=== PATIENT | female | born 1950 | race Caucasian/White ===

== ENCOUNTER 2016-05-16 17:14 | Inpatient (IN) ==
[2016-05-16 18:28] LABS: ABG Base Excess -2.6 MMOL/L (-2.5-2.5); ABG HCO3 22.1 MMOL/L (20-26); ABG Oxygen Saturation 93.4 % (95-100); ABG PCO2 27.6 MM HG (35-48); ABG PO2 63.3 MM HG (80-95); ABG TCO2 16.5 MMOL/L (23-27)
--- NOTE | 2016-05-16 18:54 | Emergency Department Note ---
Madhu Carreon Meredith, am scribing for, and in the presence of, Richie De Leon MD 18:06. Moises Carreon Robert M, MD, personally performed the services described in this documentation, ascribed by Ladonna Leung in my presence, and it is both accurate and complete [id number] . Arrival - Arrival Chief Complaint: Shortness of Breath Stated Complaint: SOB ED Nursing Triage Note: C/O HAVING SOB SINCE LAST EVENING, STATES EVERYTIME SHE COMES IN THEY TELL HER SHE IS HAVING PANIC ATTACKS, SHE STATES SHE IS NOT HAVING PANIC ATTACK THAT SOMETHING IS WRONG., STATES SHE HAS BEEN UNDER ALOT OF STRESS , STATES THAT TWO OF HER FAMILY MEMBERS HAVE BEEN MURDERED OR KILLED IN THE LAST YEAR Mode of Arrival: Ambulatory Limitations: No Limitations Source: Patient, Old Records Reviewed, RN Notes Reviewed - History of Present Illness HPI Narrative: Pt is a 65 y/o white female reporting to the ED with c/o shortness of breath for the past 3 days. She states that every time she comes here for shortness of breath she is told she's having a panic attack. Pt says she is not having a panic attack. She admits to being under a lot of stress due to her daughter being murdered and her committing suicide in the past year. She states thinking about these deaths makes the shortness of breath worse. Pt has a history of anxiety, depression, and psoriasis. Onset (ago): day(s) Allergies/Adverse Reactions: Allergies Allergy/AdvReac Type Severity Reaction Status Date / Time clarithromycin [From Biaxin] Allergy HIVES Verified 05/16/16 17:20 Home Medications: Home Medications Medication Instructions Recorded Confirmed Type Amitriptyline [Elavil] 10 mg PO Q6H #120 tablet 04/07/16 05/16/16 Rx PARoxetine [Paxil] 40 mg PO DAILY #30 tablet 04/07/16 05/16/16 Rx ALPRAZolam [Xanax] 0.25 mg PO DAILY #7 tablet 05/10/16 05/16/16 Rx Review of System - Review of System 12 point system: reviewed and no additional remarkable complaints except as stated - Review of System Respiratory: Present: as per HPI, other (SOB) Psychiatric: Present: as per HPI, other (stress) Medical,Surgical,& Family Hx - Medical History Psychological: History of: Anxiety Disorders, Depression Rheumatology: History of;: Psoriasis - Social History Smoking Status: Never smoker Frequency of Alcohol Use: None Type of Drug Use: None Exam Vital Signs: Vital Signs Temperature 97.5 F L 05/16/16 17:17 Pulse Rate 115 H 05/16/16 18:30 Respiratory Rate 22 05/16/16 18:30 Blood Pressure 100/69 05/16/16 18:30 O2 Sat by Pulse Oximetry 96 05/16/16 18:30 - General General appearance: alert, in no apparent distress, other - Head Head exam: Present: atraumatic, normocephalic - Eye Eye exam: Present: normal appearance, PERRL, EOMI - ENT ENT exam: Present: mucous membranes moist, normal external ear exam - Neck Neck exam: Present: full ROM, trachea midline. Absent: tenderness, meningismus , lymphadenopathy, thyromegaly - Chest Chest inspection: Present: symmetric chest wall rise. Absent: tenderness, rash - Respiratory Respiratory exam: Present: other (dyspnic; speaks in 1-2 word phrases due to shortness of breath). Absent: rales, rhonchi, wheezes - Cardiovascular Cardiovascular exam: Present: regular rate, normal rhythm, normal heart sounds. Absent: murmur, rubs, gallop - Abdominal Exam Abdominal exam: Present: soft, normal bowel sounds. Absent: distention, tenderness - Extremities Exam Extremities exam: Present: full ROM, normal capillary refill. Absent: tenderness, pedal edema, calf tenderness - Back Exam Back exam: Present: full ROM. Absent: tenderness - Neurological Exam Neurological exam: Present: alert, oriented X3, CN II-XII intact. Absent: motor sensory deficit - Psychiatric Psychiatric exam: Present: other (hysterical) - Skin Skin exam: Present: warm, dry, intact, normal color Course - Consultations Consultation #1: The hospitalist will evaluate and admit the patient. Time: 19:57 Results - Labs CBC & BMP: 05/16/16 18:44 05/16/16 18:44 Lab Results: I have reviewed the patients labs Labs: Laboratory Tests 05/16/16 18:07 ABG pH 7.460 H ABG pCO2 27.6 L ABG pO2 63.3 L ABG HCO3 22.1 ABG Total CO2 16.5 L ABG O2 Saturation 93.4 L ABG Base Excess -2.6 L Lab Results WBC 6.9 10*3/uL (4.5-13.71) 05/16/16 18:44 RBC 5.37 10*6/uL (3.8-5.5) 05/16/16 18:44 Hgb 15.6 GM/DL (12.0-16.0) 05/16/16 18:44 Hct 48.0 VOL% (35.7-47.0) H 05/16/16 18:44 MCV 89.4 FL (87-102) 05/16/16 18:44 MCH 29 PG (27-34) 05/16/16 18:44 MCHC 32.5 GM/DL (32-36) 05/16/16 18:44 RDW 14.1 % (9.3-17.3) 05/16/16 18:44 Plt Count 178 10*3/uL (130-400) 05/16/16 18:44 MPV 10.6 FL (9.6-12.0) 05/16/16 18:44 Neut % (Auto) 57.4 % (38.7-73.9) 05/16/16 18:44 Lymph % (Auto) 33.0 % (21.3-54.2) 05/16/16 18:44 [place] % (Auto) 8.0 % (1.7-12.7) 05/16/16 18:44 Eos % (Auto) 1.2 % (0.00-10.9) 05/16/16 18:44 Baso % (Auto) 0.3 % (0.0-0.8) 05/16/16 18:44 Neut # (Auto) 4.0 10*3/uL (1.4-7.4) 05/16/16 18:44 Lymph # (Auto) 2.3 10*3/uL (1.4-4.0) 05/16/16 18:44 [place] # (Auto) 0.6 10*3/uL (0.11-0.8) 05/16/16 18:44 Eos # (Auto) 0.1 10*3/uL (0.0-0.87) 05/16/16 18:44 Baso # (Auto) 0.0 10*3/uL (0.0-0.2) 05/16/16 18:44 Immature Gran % 0.1 % 05/16/16 18:44 Nucleated RBC % 0.0 /100WBC 05/16/16 18:44 Immature Gran # 0.01 # 05/16/16 18:44 Nucleated RBCs # 0.00 10*3/uL 05/16/16 18:44 INR 1.1 05/16/16 18:44 PT Patient/Control Mix 11.7 SECS 05/16/16 18:44 Sodium 146 MMOL/L (136-145) H 05/16/16 18:44 Potassium 4.0 MMOL/L (3.5-5.1) 05/16/16 18:44 Chloride 114 MMOL/L (98-107) H 05/16/16 18:44 Carbon Dioxide 22 MMOL/L (21-32) 05/16/16 18:44 Anion Gap 14.0 MMOL/L (5.0-15.0) 05/16/16 18:44 BUN 19 MG/DL (7-18) H 05/16/16 18:44 Creatinine 0.80 MG/DL (0.55-1.02) 05/16/16 18:44 GFR Calculation 81 ML/MIN 05/16/16 18:44 BUN/Creatinine Ratio 23.00 RATIO (6.00-20.00) H 05/16/16 18:44 Glucose 95 MG/DL (74-106) 05/16/16 18:44 Calculated Osmolality 291.6 MOS/KG (273-304) 05/16/16 18:44 Calcium 8.7 MG/DL (8.5-10.1) 05/16/16 18:44 Magnesium 2.1 MG/DL (1.8-2.4) 05/16/16 18:44 Total Bilirubin 0.90 MG/DL (0.2-1.0) 05/16/16 18:44 AST 36 U/L (0-37) 05/16/16 18:44 ALT 28 U/L (13-56) 05/16/16 18:44 Alkaline Phosphatase 75 U/L (45-117) 05/16/16 18:44 Total Protein 7.7 G/DL (6.4-8.3) 05/16/16 18:44 Albumin 3.2 G/DL (3.4-5.0) L 05/16/16 18:44 Globulin 4.5 G/DL (2.3-3.5) H 05/16/16 18:44 Albumin/Globulin Ratio 0.7 RATIO (1.1-2.2) L 05/16/16 18:44 Urine Color [place] (Yellow) 05/16/16 18:46 Urine Appearance Slightly hazy (Clear) 05/16/16 18:46 Urine pH 5.0 (4.5-8.0) 05/16/16 18:46 Ur Specific [place] 1.026 (1.001-1.035) 05/16/16 18:46 Urine Protein 30 MG/DL 05/16/16 18:46 Urine Glucose (UA) Negative mg/dL (Negative) 05/16/16 18:46 Urine Ketones Negative mg/dL (Negative) 05/16/16 18:46 Urine Blood Negative mg/dL (Negative) 05/16/16 18:46 Urine Nitrate Negative (Negative) 05/16/16 18:46 Urine Bilirubin Negative mg/dL (Negative) 05/16/16 18:46 Urine Urobilinogen < 2.0 EU/DL (0.2-1.0) H 05/16/16 18:46 Urine Leukocytes Trace Radha/ul (Negative) 05/16/16 18:46 Urine RBC 2 /HPF (0-4) 05/16/16 18:46 Urine WBC 12 /HPF (0-6) 05/16/16 18:46 Ur Squamous Epith Cells Occasional /HPF (0-10) 05/16/16 18:46 Urine Bacteria Occasional /HPF (Few) 05/16/16 18:46 Hyaline Casts 4 /LPF (0-3) 05/16/16 18:46 Urine Mucus Occasional /LPF (Occasional) 05/16/16 18:46 Ur Culture Indicated? Results to follow 05/16/16 18:46 ABG pH 7.460 (7.35-7.45) H 05/16/16 18:07 ABG pCO2 27.6 MM HG (35-48) L 05/16/16 18:07 ABG pO2 63.3 MM HG (80-95) L 05/16/16 18:07 ABG HCO3 22.1 MMOL/L (20-26) 05/16/16 18:07 ABG Total CO2 16.5 MMOL/L (23-27) L 05/16/16 18:07 ABG O2 Saturation 93.4 % (95-100) L 05/16/16 18:07 ABG Base Excess -2.6 MMOL/L (-2.5-2.5) L 05/16/16 18:07 - EKG EKG results: interpreted by JANNETH, WNL, sinus rhythm - Diagnostic Findings Procedure: Chest x-ray: image reviewed by me (CHF) Disposition Clinical Impression: Congestive heart failure, Acute dyspnea, History of hypertension Case discussed with: patient, patient's family Disposition: Still a Patient Condition: Stable Time of Disposition: 19:57
[2016-05-16 19:09] LABS: Apearance,Urine Slightly Hazy (Clear); Bacteria,Urine Occasional /HPF (Few); Bilirubin,Urine Negative (Negative); Blood, Urine Negative (Negative); Glucose,Urine (UA) Negative (Negative); Hyaline Casts,Urine 4 /LPF (0-3); Ketones,Urine Negative (Negative); Mucus,Urine Occasional /LPF (Occasional); Nitrite,Urine Negative (Negative); Protein,Urine 30 MG/DL; RBC,Urine 2 /HPF (0-4); Squamous Epithelial Cell,Urine Occasional /HPF (0-10); Urine Color Amber (Yellow); Urine Specific Gravity 1.026 (1.001-1.035); Urine Urobilinogen < 2.0 EU/DL (0.2-1.0); WBC,Urine 12 /HPF (0-6)
--- NOTE | 2016-05-16 19:09 | XRay Report ---
History: Shortness of breath Date: 05/16/2016 at 6:23 PM Study: Chest x-ray AP portable Comparison exam: No previous chest x-ray available There is cardiomegaly and mild pulmonary vascular engorgement. There is no mediastinal mass. There is hazy edema in the lower lungs right greater than left. There is mild bilateral pleural effusion. The osseous structures are unremarkable. Impression: Cardiomegaly and evidence of congestive heart failure with mild bibasilar edema and pleural effusion PROCEDURE INTERPRETED AT [facility] DEPARTMENT OF RADIOLOGY Final Report Signed by: Dr. Ava Powell
[2016-05-16 19:19] LABS: Basophils % 0.3 % (0.0-0.8); Eosinophils # 0.1 10*3/uL (0.0-0.87); Eosinophils % 1.2 % (0.00-10.9); Hemoglobin 15.6 GM/DL (12.0-16.0); Immature Granulocytes % 0.1 %; Immature Granulocytes Absolute 0.01 #; Lymphocytes # 2.3 10*3/uL (1.4-4.0); Mean Corpuscular HGB Conc 32.5 GM/DL (32-36); Mean Corpuscular Hemoglobin 29 PG (27-34); Mean Corpuscular Volume 89.4 FL (87-102); Mean Platelet Volume 10.6 FL (9.6-12.0); Monocytes # 0.6 10*3/uL (0.11-0.8); Neutrophils % 57.4 % (38.7-73.9); Platelet Count 178 10*3/uL (130-400); Red Blood Count 5.37 10*6/uL (3.8-5.5); Red Cell Distribution Width 14.1 % (9.3-17.3); White Blood Count 6.9 10*3/uL (4.5-13.71)
[2016-05-16 19:32] LABS: INR 1.1; PT Patient Result 11.7 SECS
[2016-05-16 19:44] LABS: Albumin 3.2 G/DL (3.4-5.0); Bilirubin,Total 0.9 MG/DL (0.2-1.0); Calcium 8.7 MG/DL (8.5-10.1); Magnesium 2.1 MG/DL (1.8-2.4); Osmolality,Calculated 291.6 MOS/KG (273-304); Total Protein 7.7 G/DL (6.4-8.3)
--- NOTE | 2016-05-16 20:07 | CT Report ---
History: Shortness of breath. Decreased oxygen saturation Date: 05/16/2016 Study: CT chest with IV contrast with pulmonary embolus technique Comparison exam: No previous chest CT available Spiral CT sections were obtained through the lungs following the IV administration of 80 mL of Omnipaque 350 without immediate complication. Multiplanar reconstruction images are also evaluated. Total DLP measures 265.5 mGy*cm. There is no discrete filling defect within the pulmonary arterial tree to suggest acute pulmonary embolic disease. There is no aortic aneurysm. There is cardiomegaly. There is moderate to large bilateral pleural effusion. There is some strandy and hazy opacity in the lung bases which thought represent a combination of atelectasis and pulmonary edema. There is moderate thoracic spondylosis. Impression: No evidence of acute pulmonary embolic disease. Cardiomegaly and evidence of CHF. Bibasilar atelectasis. Bilateral pleural effusion PROCEDURE INTERPRETED AT [facility] DEPARTMENT OF RADIOLOGY Final Report Signed by: Dr. Ava Powell
--- NOTE | 2016-05-16 21:00 | Hospitalist History & Physical ---
Assessment and Plan (1) Congestive heart failure Status: Suspected Current Visit: Yes (2) Acute anxiety Status: Acute Current Visit: No (3) History of hypertension Status: Acute Assessment and plan: Plan: 05/16: Admit to telemetry, check cardiac enzymes and EKG. Will obtain echo in the morning to evaluate LV function. In the meantime start beta wing and lisinopril/HCTZ for adequate blood pressure control. Check A1c and lipid panel and treat accordingly. We'll also diuresis her obtain daily weights. Current Visit: Yes History of Present Illness Chief complaint: persistent shortness of breath History of present illness: Ms. Hodge is a 65 year old female with a history of hypertension and "borderline diabetes," who apparently lost a lot of weight over the last year and since not taken any medicine presents with recurrent shortness of breath, worse with exertion. She has a mild nonproductive cough. She denies chest pain , nausea vomiting or diarrhea. No fever. She also seems to have depression/ anxiety issues resulting from the of her and daughter for the last year or so. Her chest CT was negative for PE, both chest CT and chest x- ray are consistent with cardiomegaly and pleural effusions. She stopped being admitted for workup of possible CHF. Home Medications Medication Instructions Recorded Confirmed Type Amitriptyline [Elavil] 10 mg PO Q6H #120 tablet 04/07/16 05/16/16 Rx PARoxetine [Paxil] 40 mg PO DAILY #30 tablet 04/07/16 05/16/16 Rx ALPRAZolam [Xanax] 0.25 mg PO DAILY #7 tablet 05/10/16 05/16/16 Rx Allergies Allergy/AdvReac Type Severity Reaction Status Date / Time clarithromycin [From Biaxin] Allergy HIVES Verified 05/16/16 17:20 Medical,Surgical,& Family Hx - Medical History Cardio: History of: Hypertension Psychological: History of: Anxiety Disorders, Depression Endocrine: History of: Diabetes Mellitus (NIDDM) ("borderline" hypertension she states lost weight and was never on any meds) Rheumatology: History of;: Psoriasis Gastrointestinal: No history of: GERD - Surgical History Surgical History: noncontributory - Family History Family History: noncontributory - Social History Smoking Status: Never smoker Frequency of Alcohol Use: None Type of Drug Use: None Marital Status: Functional capacity: independent ambulation Review of systems: A 12 point review of systems is negative except as specified in the HPI Exam - Constitutional Vitals: Period Temp Pulse Resp BP Sys/Bueno Pulse Ox Last 24 Hr 97.5 F 113-116 22-26 100-134/69-90 93-97 Exam: EXAM: CONSTITUTIONAL: non toxic, NAD HEENT: NC, AT, OP benign, BILL, EOMI CV: RRR no m/g/r RESP: Bibasilar rales, no wheezes GI: abd soft, NT, ND, +bowel sounds INTEGUMENTARY: no lesions or rash EXTREMITIES: no c/c/e NEURO: no focal deficits PSYCH: unremarkable, A/O x3 Results - Labs CBC & BMP: 05/16/16 18:44 05/16/16 18:44 Lab Results: I have reviewed the past 24 hour labs - Diagnostic Findings Procedure: Chest x-ray: image reviewed by me, report reviewed by me, CT - chest : image reviewed by me, report reviewed by me
[2016-05-16] MEDS ORDERED: ACETAMINOPHEN 325 MG TABLET PO PRN (21:08)
[2016-05-16] MEDS ORDERED: BISACODYL 5 MG TABLET PO PRN (21:08)
[2016-05-16] MEDS ORDERED: ONDANSETRON 4 MG/2 ML VIAL IV PRN (21:08)
[2016-05-16 22:22] LABS: Troponin I Only < 0.015 NG/ML (0.00-0.045)
[2016-05-16] MEDS: MORPHINE 2 MG/1 ML SYRINGE IV PRN (22:47)
[2016-05-16] MEDS: ENOXAPARIN 40 MG/0.4 ML SYRINGE SUBCUT SCH (22:47)
[2016-05-16] MEDS: CARVEDILOL 3.125 MG TABLET PO SCH (22:47)
[2016-05-17 05:53] LABS: Basophils % 0.5 % (0.0-0.8); Eosinophils # 0.1 10*3/uL (0.0-0.87); Eosinophils % 1.8 % (0.00-10.9); Hematocrit 43.6 VOL% (35.7-47.0); Hemoglobin 14.4 GM/DL (12.0-16.0); Immature Granulocytes % 0.2 %; Immature Granulocytes Absolute 0.01 #; Lymphocytes # 1.6 10*3/uL (1.4-4.0); Mean Corpuscular Hemoglobin 29 PG (27-34); Mean Corpuscular Volume 88.3 FL (87-102); Mean Platelet Volume 11.1 FL (9.6-12.0); Monocytes # 0.4 10*3/uL (0.11-0.8); Monocytes % 7.5 % (1.7-12.7); Neutrophils # 3.3 10*3/uL (1.4-7.4); Platelet Count 167 10*3/uL (130-400); Red Blood Count 4.94 10*6/uL (3.8-5.5); Red Cell Distribution Width 14.2 % (9.3-17.3); White Blood Count 5.5 10*3/uL (4.5-13.71)
[2016-05-17 06:31] LABS: Albumin 2.9 G/DL (3.4-5.0); Bilirubin,Total 1.1 MG/DL (0.2-1.0); Calcium 8.6 MG/DL (8.5-10.1); Magnesium 2.2 MG/DL (1.8-2.4); Osmolality,Calculated 297.3 MOS/KG (273-304); Potassium 4.4 MMOL/L (3.5-5.1); Risk Ratio 2.55; Thyroid Stimulating Hormone 1.59 uIU/ml (0.358-3.74); Total Protein 6.4 G/DL (6.4-8.3); VLDL CHOLESTEROL 14.8 MG/DL
[2016-05-17] MEDS ORDERED: FUROSEMIDE 40 MG/4 ML VIAL IV SCH (08:00)
--- NOTE | 2016-05-17 08:06 | XRay Report ---
Portable chest Date:[05/17/2016] Clinical history: Shortness of breath Comparison: 05/16/2016 Technique: Portable AP sitting chest Findings: Persistent cardiomegaly with uncoiling of the aorta. The lungs remain overexpanded with diffuse parenchymal findings especially lower lung zones. Findings are improved on right and progressive on left with larger small left pleural effusion. Stable mediastinum with degenerative changes. Impression: Persistent cardiomegaly with reduced atelectasis/edema/infiltration at the right lung base. Similar progressive findings at left lung base with minimally larger small left pleural effusion. PROCEDURE INTERPRETED AT [facility] DEPARTMENT OF RADIOLOGY Final Report Signed by: Dr. Yun Ham
[2016-05-17] MEDS: PARoxetine 20 MG TABLET PO SCH (08:49)
[2016-05-17] MEDS: PANTOPRAZOLE 40 MG TABLET PO SCH (08:49)
[2016-05-17] MEDS: CARVEDILOL 3.125 MG TABLET PO SCH ×2 (08:49→20:56)
[2016-05-17] MEDS: ALPRAZolam 0.25 MG TABLET PO SCH (08:49)
[2016-05-17] MEDS: LISINOPRIL/HCTZ 10-12.5 MG TABLET PO SCH (08:49)
--- NOTE | 2016-05-17 10:10 | EKG Report ---
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
--- NOTE | 2016-05-17 10:13 | Physician Query Form ---
CLICK EDIT DOCUMENT TO SELECT QUERY ANSWER --> OK --> SIGN Sherlyn De Leon RN, CCDS Certified Clinical Hand I Cutter W) [phone] (f) [phone] [email or web address] PROVIDERS: Make your selection(s) from the choices in EACH section by typing an "x" and enter comments in the comment section. Please use your independent medical judgment in providing your response. This request does not imply that any particular answer is desired or expected. CLINICAL INDICATORS: (Providers should not edit this section) The medical record indicates that the patient was admitted with suspected CHF, BNP of 1939#, CT of chest "Cardiomegaly and evidence of CHF", "Bilateral pleural effusion" and the patient is on IV Lasix 40 mg BID. Please provide further specificity regarding CHF. ACUITY: ( ) Acute ( ) Chronic (x ) Acute on Chronic ( ) Clinically unable to determine TYPE: ( ) Systolic ( ) Diastolic ( ) Combined Systolic/Diastolic (x ) Other, please specify: ( ) Clinically unable to determine ( ) The patient does NOT have CHF COMMENTS: Use of terms such as suspected, likely, or probable (associated with a specific diagnosis that is being evaluated, monitored, or treated as if it exists) are acceptable and can be restated in the discharge summary if not ruled out. MTDD
--- NOTE | 2016-05-17 10:30 | Hospitalist Progress Note ---
Assessment and Plan (1) Acute anxiety Status: Acute Assessment and plan: 1)anxiety and depression- asked SW to offer inpatient psych referral when medical problems stable. She has had worsened emotional situation over the holidays. Firmly denies thoughts of suicide or homicide. 2)Cardiac- on coreg and lisinorpil now. Decrease IV lasix- on exam is well diuresed. Echo pending. May need cards consult. ?takosubo? Current Visit: No (2) Congestive heart failure Status: Suspected Current Visit: Yes (3) Acute dyspnea Status: Acute Current Visit: Yes (4) History of hypertension Status: Acute Current Visit: Yes Hospitalist: Subjective Interval history: Mrs Hodge has had anxiety getting worse over the holidays to the point that she doesn't want to get out of bed and hasn't been eating. She is treated for anxiety adn depression by her PCP with paxil, elavil, and xanax. On top of increasing anxiety she has had shortness of breath that feels different. She came to ER because she is worried about her heart. In ER she had small pleural effusions and caridomegaly. No PE on CT, no UT. No lower extremity edema. SHe had HTN for a long time but stopped meds when she lost 100pounds after her 's suicide 2 years ago. Echo pending. Sats good on room air, no arrhythmias. Exam - Constitutional Vitals: Period Temp Pulse Resp BP Sys/Bueno Pulse Ox Last 24 Hr 96.5 F-98.5 F 86-115 16-20 98-140/54-92 92-97 General appearance: normal weight, no acute distress - Head Head exam: Present: normocephalic, atraumatic - Eye Eye exam: Present: EOMI. Absent: scleral icterus - Respiratory Respiratory exam: Present: clear to auscultation bilaterally. Absent: rales, rhonchi, wheezes - Cardiovascular Cardiovascular exam: Present: regular rate and rhythm. Absent: diastolic murmur , rubs, systolic murmur - GI/Abdominal GI/Abdominal exam: Present: normal bowel sounds, soft. Absent: tenderness - Extremities Exam Extremities exam: Absent: edema - Neurological Exam Neurological exam: Present: alert, oriented X3, CN II-XII intact. Absent: motor sensory deficit - Psychiatric Psychiatric exam: Present: anxious, depressed. Absent: homicidal ideation, suicidal ideation - Skin Skin exam: Present: normal color, warm, dry Results - Labs CBC & BMP: 05/17/16 04:58 05/17/16 04:59 Lab Results: I have reviewed the past 24 hour labs Specialty Discharge - Follow Up or Referrals - Discharge Medications No Action Amitriptyline [Elavil] 10 mg PO Q6H #120 tablet PARoxetine [Paxil] 40 mg PO DAILY #30 tablet ALPRAZolam [Xanax] 0.25 mg PO DAILY #7 tablet
[2016-05-17 13:11] LABS: Barbiturates Screen,Urine Negative (Negative); Benzodiazepines Screen,Urine Negative (Negative); Cannabinoid Screen,Urine Negative (Negative); Opiate Screen,Urine Positive (Negative); Phencyclidine Screen,Urine Negative (Negative)
--- NOTE | 2016-05-17 21:26 | ECHO Report ---
Sonya Hodge Exam Date: 05/17/2016 09:29 Referring Physician: Technologist: Peyton Whittaker RDCS Age: 65 Ht (in): Wt (lb): Gender: F Exam [facility]: [facility] Echo Indications: Heart failure, unspecified, Essential (primary) hypertension, Dyspnea, unspecified, NIDDM, Acute anxiety BP: / HR: Rhythm: Sinus Technical Quality: IMPRESSIONS Mildly dilated left ventricle, without hypertrophy, with severe global hypokinesis. Estimated left ventricular ejection fraction 10%. Grade 3-4 diastolic dysfunction. Dilated right sided heart chambers, with decreased systolic RV function and mild pulmonary hypertension, moderate tricuspid regurgitation. Moderate left atrial enlargement. Moderate to severe mitral regurgitation. MEASUREMENTS (Male / Female) Normal Values 2D ECHO LV Diastolic Diameter PLAX 6.1 cm 4.2 - 5.9 / 3.9 - 5.3 cm LV Systolic Diameter PLAX 5.3 cm LV Fractional Shortening PLAX 13.7 % IVS Diastolic Thickness 0.9 cm 0.6 - 1.0 / 0.6 - 0.9 cm LVPW Diastolic Thickness 0.9 cm 0.6 - 1.0 / 0.6 - 0.9 cm RV Internal Dim ED PLAX 3.8 cm Aortic Root Diameter 3.2 cm LA Systolic Diameter LX 5.8 cm 3.0 - 4.0 / 2.7 - 3.8 cm DOPPLER TR Peak Velocity 292.0 cm/s TR Peak Gradient 34.1 mmHg FINDINGS Left Ventricle Mildly dilated left ventricle, without hypertrophy, with severe global hypokinesis. Estimated left ventricular ejection fraction 10%. Grade 3-4 diastolic dysfunction. Right Ventricle The right ventricle is moderately dilated with decreased systolic function. Right Atrium Moderately increased right atrial size. Left Atrium Moderately increased left atrial size. Mitral Valve Structurally normal mitral valve, with moderate to severe regurgitation. Aortic Valve Structurally normal aortic valve with trace insufficiency. Tricuspid Valve Morphologically normal tricuspid valve. Moderate tricuspid valve regurgitation. Tricuspid regurgitation velocities suggest a PAP of 34 mmHg + RA pressure. Pulmonic Valve Morphologically normal pulmonic valve. Trace pulmonary valve regurgitation. Pericardium Normal pericardium without effusion. Aorta Normal ascending aorta dimension. Brayan Moeller (Electronically Signed) Final Date: 17 May 2016 21:25
[2016-05-17] MEDS: ENOXAPARIN 40 MG/0.4 ML SYRINGE SUBCUT SCH (21:28)
[2016-05-18 06:23] LABS: Basophils % 0.5 % (0.0-0.8); Eosinophils # 0.2 10*3/uL (0.0-0.87); Eosinophils % 3.9 % (0.00-10.9); Hematocrit 39.9 VOL% (35.7-47.0); Hemoglobin 13.3 GM/DL (12.0-16.0); Immature Granulocytes % 0.2 %; Immature Granulocytes Absolute 0.01 #; Lymphocytes # 2.7 10*3/uL (1.4-4.0); Lymphocytes % 45.6 % (21.3-54.2); Mean Corpuscular HGB Conc 33.3 GM/DL (32-36); Mean Corpuscular Hemoglobin 30 PG (27-34); Mean Corpuscular Volume 88.7 FL (87-102); Mean Platelet Volume 10.5 FL (9.6-12.0); Monocytes # 0.5 10*3/uL (0.11-0.8); Monocytes % 8.5 % (1.7-12.7); Neutrophils # 2.5 10*3/uL (1.4-7.4); Neutrophils % 41.3 % (38.7-73.9); Platelet Count 153 10*3/uL (130-400)
[2016-05-18 06:57] LABS: Calcium 8.4 MG/DL (8.5-10.1); Magnesium 2.1 MG/DL (1.8-2.4); Osmolality,Calculated 291.7 MOS/KG (273-304); Potassium 3.8 MMOL/L (3.5-5.1)
[2016-05-18] MEDS ORDERED: FUROSEMIDE 40 MG/4 ML VIAL IV SCH (09:00)
[2016-05-18] MEDS: LISINOPRIL/HCTZ 10-12.5 MG TABLET PO SCH (10:18)
[2016-05-18] MEDS: CARVEDILOL 3.125 MG TABLET PO SCH (12:06)
[2016-05-18] MEDS: LISINOPRIL 2.5 MG TABLET PO SCH (12:07)
[2016-05-18] MEDS: FUROSEMIDE 40 MG TABLET PO SCH (12:07)
[2016-05-18] MEDS: PANTOPRAZOLE 40 MG TABLET PO SCH (12:07)
[2016-05-18] MEDS: ALPRAZolam 0.25 MG TABLET PO SCH (12:07)
[2016-05-18] MEDS: PARoxetine 20 MG TABLET PO SCH (12:07)
--- NOTE | 2016-05-18 13:12 | Hospitalist Progress Note ---
Assessment and Plan (1) Acute anxiety Status: Inactive Assessment and plan: 1)anxiety and depression- she is interested in the [facility] option and SW has made the referral. Awaiting insurance precert. She has had worsened emotional situation over the holidays. Firmly denies thoughts of suicide or homicide. 2)Cardiac- EF 10% on echo. BP low on coreg- now held. On lisinopril. She is well diuresed, lasix stopped. Suspect Takat subo Current Visit: No (2) Congestive heart failure Status: Suspected Current Visit: Yes (3) Acute dyspnea Status: Acute Current Visit: Yes (4) History of hypertension Status: Acute Current Visit: Yes Hospitalist: Subjective Interval history: Ms Hodge is feeling better today. She is visiting with family. She denies chest pain and reiterates that though she has numerous family members with heart disease she has no personal history of heart disease or chest pain. Exam - Constitutional Vitals: Period Temp Pulse Resp BP Sys/Bueno Pulse Ox Last 24 Hr 97.7 F-98.7 F 86-97 16-20 80-99/37-64 90-100 General appearance: normal weight, no acute distress - Eye Eye exam: Present: EOMI. Absent: scleral icterus - Respiratory Respiratory exam: Present: clear to auscultation bilaterally - Cardiovascular Cardiovascular exam: Present: regular rate and rhythm. Absent: gallop, rubs - GI/Abdominal GI/Abdominal exam: Present: normal bowel sounds, soft. Absent: tenderness - Extremities Exam Extremities exam: Absent: edema Results - Labs CBC & BMP: 05/18/16 05:59 05/18/16 05:59 Lab Results: I have reviewed the past 24 hour labs Specialty Discharge - Follow Up or Referrals - Discharge Medications No Action Amitriptyline [Elavil] 10 mg PO Q6H #120 tablet PARoxetine [Paxil] 40 mg PO DAILY #30 tablet ALPRAZolam [Xanax] 0.25 mg PO DAILY #7 tablet
--- NOTE | 2016-05-18 13:25 | Cardiology Consult Note ---
I, Molly Costa RN, am scribing for, and in the presence of, Brayan Moeller MD 13: 14. Assessment and Plan - Time spent with patient Time spent with patient: Greater than 30 minutes (1) Congestive heart failure Status: Acute Assessment and plan: 65 year old female, with CHF exacerbation, newly diagnosed cardiomyopathy, likely nonischemic in origin. Psoriatic arthritis, remote history of smoking, suspected drug abuse or incidental (met)amphetamine intake. The elevated heart rate is likely compensated for the low stroke volume. Already had asymptomatic VTA. Clinically, she is euvolemic and appears to have decreased CO. LDL, HbA1c normal. -I will start with vasodilator first. Start lisinopril 2.5 mg daily. Do not hold unless systolic BP <80. -Continue gentle diuresis. I suggest 40 mg by mouth Lasix today. -She may not be able to tolerate a beta wing at this point, although this would be quite beneficial as she already has a ventricular ectopy. Hold Coreg. -I would hold off a pressor at this time due to ventricular ectopy, if hypotension limits initiation of CHF regimen this may be required with close monitoring -No evidence of demand ischemia. She will need ischemic workup, when CHF improves. Can be pursued as an outpatient. -Check CRP, ESR. No history of rheumatologic disease besides psoriatic arthritis so far, which was stable recently. Clinical course so far does not suggest acute myocarditis. -Cardiac rehab consult. PT eval -She is quite depressed, consider psych eval -Recommend Lifevest on discharge Current Visit: Yes (2) Acute dyspnea Status: Acute Current Visit: Yes (3) History of hypertension Status: Acute Current Visit: Yes (4) Depression Status: Acute Current Visit: Yes (5) Anxiety Status: Acute Current Visit: Yes History of Present Illness - Data of Consult Patient: new to practice Consult date: 05/18/16 Requesting Physician: Elizabeth Irizarry - Consult Narrative Reason for consult: SOB, EF 10% History of present illness: Ms. 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 She has a history of hypertension, no longer taking medications, and anxiety. She is a former smoker. She smoked for 20 years but quit smoking when she was 42. She had been in her usual state of health until the past couple of weeks when she began to have worsening shortness of breath, exacerbated by exertion. She tells me she has not really gotten out of bed much in the last 2 weeks. She does have a mild nonproductive cough. She has been severely depressed lately. Two years ago, her mother , then one month later, she found her 's body after he committed suicide. Her daughter was also recently shot to in the head within the last few months. She reports a history of prior hypertension and borderline diabetes but after her , she lost 100 pounds and has since quit taking any medications. She denies thoughts of harming her self or others, denies thoughts of suicide. Her CT was negative for PE but consistent for cardiomegaly and pleural effusions. Echocardiogram revealed ejection fraction of 10% with severe global hypokinesis. Her urine was positive for opiates and methamphetamines. She denies drug use but tells me she never threw her husbands medications away after he and since he had medication to help with his breathing due to emphysema, she has been taking his medications trying to find the pill that "helped with breathing." She denies chest pain or chest pressure, palpitations, dizziness, lightheadedness, or syncopal events. She is severely depressed and begins crying while telling me her history. She became hypotensive with diuretics after admission. Fair UOP. Low-dose beta wing and ABHIJEET inhibitor was planned to be started, but was held due to hypotension. She is able to ambulate slowly to the restroom, did not have any prior syncope. She is feeling slightly better. One episode of short, asymptomatic nonsustained VT on telemetry. Occasional PVCs. CC: Elizabeth Irizarry MD - Home Medications and Allergies Home Medications: Home Medications Medication Instructions Recorded Confirmed Type Amitriptyline [Elavil] 10 mg PO Q6H #120 tablet 04/07/16 05/16/16 Rx PARoxetine [Paxil] 40 mg PO DAILY #30 tablet 04/07/16 05/16/16 Rx ALPRAZolam [Xanax] 0.25 mg PO DAILY #7 tablet 05/10/16 05/16/16 Rx Allergies/Adverse Reactions: Allergies Allergy/AdvReac Type Severity Reaction Status Date / Time clarithromycin [From Biaxin] Allergy HIVES Verified 05/16/16 17:20 12 point system: reviewed and no additional remarkable complaints except as stated - Constitutional Constitutional: Present: fatigue. Absent: anorexia, chills, daytime sleepiness , excessive sweating, fever(s), frequent falls, headache(s), increased appetite , lethargy, malaise, weakness, weight gain, weight loss - EENT Eyes: Absent: blurry vision, diplopia, loss of vision Ears: Absent: decreased hearing, ear discharge, ear pain Nose, mouth and throat: Absent: dysphagia, epistaxis, headache(s), hoarseness, lip swelling, nasal congestion, neck mass, neck pain, sinus pressure, sore throat, throat swelling, tongue swelling, vertigo - Cardiovascular Cardiovascular: Present: dyspnea, dyspnea on exertion. Absent: chest pain at rest, chest pain with activity, claudication, diaphoresis, edema, radiating jaw , neck or arm pain, lightheadedness, orthopnea, palpitations, PND - Respiratory Respiratory: Present: cough, dyspnea, dyspnea on exertion. Absent: hemoptysis, wheezing, snoring, pain on inspiration - Gastrointestinal Gastrointestinal: Absent: abdominal pain, bloating, change in bowel habits, constipation, diarrhea, dysphagia, heartburn, hematochezia, loose stools, melena , nausea, vomiting - Genitourinary Genitourinary: Absent: difficulty urinating, dysuria, flank pain, urinary frequency, urinary hesitancy, urinary incontinence - Musculoskeletal Musculoskeletal: Absent: arthralgias, back pain, joint swelling, limited range of motion, muscle cramps, muscle weakness, myalgias - Neurological Neurological: Absent: abnormal gait, abnormal speech, behavioral changes, confusion, convulsions, disequilibrium, dizziness, focal weakness, frequent falls, headache(s), memory loss, numbness, paresthesias, radicular pain, syncope , tremor(s) - Psychiatric Psychiatric: Present: anxiety, depression, panic attacks. Absent: confusion, difficulty concentrating, homicidal ideation, memory loss - Endocrine Endocrine: Absent: cold intolerance, heat intolerance, polydipsia, polyphagia - Hematologic/Lymphatic Hematologic/Lymphatic: Absent: easy bleeding, easy bruising, lymphadenopathy Medical,Surgical,& Family Hx - Medical History Cardio: History of: Hypertension Psychological: History of: Anxiety Disorders, Depression Endocrine: History of: Diabetes Mellitus (NIDDM) ("borderline" hypertension she states lost weight and was never on any meds) Rheumatology: History of;: Psoriasis Gastrointestinal: No history of: GERD - Social History Smoking Status: Never smoker Frequency of Alcohol Use: None Type of Drug Use: None Physical Examination Vital Signs Temp Pulse Resp BP Pulse Ox 97.5 F L 116 H 24 134/90 97 05/16/16 17:17 05/16/16 17:17 05/16/16 17:17 05/16/16 17:17 05/16/16 17:17 General: Present: No Apparent Distress, Other (appears depressed) HEENT: Present: Normocephaly, Mucus Membranes Moist Neck: Present: Supple Neck, Midline Trachea, No Masses, No Bruit, No Lymphadenopathy, No Thyromegaly Cardiac: Present: Reg Rate and Rhythm, Regular Rate, Regular Rhythm, No Murmur Lungs: Present: Normal Breath Sounds, Decreased Breath Sounds (bilateral posterior bases), No Wheeze, Rales, Rhonchi Neuro: Present: Grossly Intact. Absent: Resting Tremor, Essential Tremor Abdomen: Present: Soft, Active Bowel Sounds, No Masses, No Pulsations/Bruits, Unremarkable, Non-Tender Skin: Present: Clear, Other (patchy, scaly lesions noted to right wrist, patient has a history of psoriasis. otherwise clear) Musculoskeletal: Present: No Fluid Collection, No Pain, Normal Range of Motion Extremities: Present: No Clubbing, No Cyanosis, No Edema, Normal Upper Extr. Pulses, Normal Lower Extr. Pulses, Capillary Refill (2s) Result/EKG - Labs CBC & BMP: 05/18/16 05:59 05/18/16 05:59 Lab Results: I have reviewed the past 24 hour labs Labs: Laboratory Results - last 24 hr 05/18/16 05/18/16 05:59 05:59 WBC 6.0 RBC 4.50 Hgb 13.3 Hct 39.9 MCV 88.7 MCH 30 MCHC 33.3 RDW 14.0 Plt Count 153 MPV 10.5 Neut % (Auto) 41.3 Lymph % (Auto) 45.6 [place] % (Auto) 8.5 Eos % (Auto) 3.9 Baso % (Auto) 0.5 Neut # (Auto) 2.5 Lymph # (Auto) 2.7 [place] # (Auto) 0.5 Eos # (Auto) 0.2 Baso # (Auto) 0.0 Immature Gran % 0.2 Nucleated RBC % 0.0 Immature Gran # 0.01 Nucleated RBCs # 0.00 Sodium 145 Potassium 3.8 Chloride 111 H Carbon Dioxide 23 Anion Gap 14.8 BUN 26 H Creatinine 0.90 GFR Calculation 77 BUN/Creatinine Ratio 28.00 H Glucose 88 Calculated Osmolality 291.7 Calcium 8.4 L Magnesium 2.1 - EKG EKG results: interpreted by me Specialty Discharge - Follow Up or Referrals - Discharge Medications No Action Amitriptyline [Elavil] 10 mg PO Q6H #120 tablet PARoxetine [Paxil] 40 mg PO DAILY #30 tablet ALPRAZolam [Xanax] 0.25 mg PO DAILY #7 tablet Sajan Carreon Attila, MD, personally performed the services described in this documentation, ascribed by Molly Costa RN in my presence, and it is both accurate and complete [id number] .
[2016-05-18] MEDS: MORPHINE 2 MG/1 ML SYRINGE IV PRN ×2 (17:09→21:15)
[2016-05-18] MEDS: ENOXAPARIN 40 MG/0.4 ML SYRINGE SUBCUT SCH (21:15)
[2016-05-19] MEDS: PARoxetine 20 MG TABLET PO SCH (09:09)
[2016-05-19] MEDS: FUROSEMIDE 40 MG TABLET PO SCH (09:09)
[2016-05-19] MEDS: LISINOPRIL 2.5 MG TABLET PO SCH (09:10)
[2016-05-19] MEDS: ALPRAZolam 0.25 MG TABLET PO SCH (09:10)
[2016-05-19] MEDS: PANTOPRAZOLE 40 MG TABLET PO SCH (09:10)
--- NOTE | 2016-05-19 09:53 | Hospitalist Progress Note ---
Assessment and Plan - Time spent with patient Time spent with patient: Less than 30 minutes (due to assessment, plan and documentation.) (1) Acute systolic CHF (congestive heart failure) Status: Acute Current Visit: Yes (2) Acute dyspnea Status: Acute Current Visit: Yes (3) Anxiety Status: Acute Current Visit: Yes (4) Depression Status: Acute Current Visit: Yes (5) History of hypertension Status: Acute Current Visit: Yes (6) Ventricular tachycardia Status: Acute Assessment and plan: life vest has been approved. Current Visit: Yes Hospitalist: Subjective Interval history: Ms. Hodge was seen on rounds today lying in bed. She states that she feels somewhat better, but that when she finished eating, she went to the restroom and got very short of breath. Her EF is noted to be 10% and has had some runs of VTach. Dr. Moeller is also following her and has recommended a life vest. This has been approved. We have also been working with [facility] as well for anxiety and depression after the suicide of her and murder of her daughter within the past year or so. However, today, she states that she does not want to go to [facility] as an outpatient, but would be willing to go there for therapy as an outpatient. I spoke with Harpreet and this approval was pending as well. Her BP has been a little on the low side at 87/67 at last check. O2 sats are low to mid 90's on 2L. Labs are stable to improved this morning. We will continue to follow along with Dr. Moeller. Exam - Constitutional Vitals: Period Temp Pulse Resp BP Sys/Bueno Pulse Ox Last 24 Hr 96.3 F-98.3 F 89-106 16-20 87-121/57-75 90-96 General appearance: normal weight, no acute distress - Head Head exam: Present: normal inspection, normocephalic - Eye Eye exam: Present: EOMI. Absent: scleral icterus Pupils: Present: BILL, normal accommodation - ENT ENT exam: Present: normal exam, normal oropharynx - Neck Neck exam: Present: normal inspection. Absent: lymphadenopathy - Respiratory Respiratory exam: Present: clear to auscultation bilaterally. Absent: accessory muscle use - Cardiovascular Cardiovascular exam: Present: regular rate and rhythm. Absent: carotid bruit - GI/Abdominal GI/Abdominal exam: Present: normal bowel sounds, soft. Absent: tenderness - Extremities Exam Extremities exam: Present: normal inspection. Absent: edema - Back Exam Back exam: Present: normal inspection. Absent: muscle spasm - Neurological Exam Neurological exam: Present: alert, oriented X3 - Psychiatric Psychiatric exam: Present: normal affect, depressed - Skin Skin exam: Present: normal color, warm, dry, intact Results - Labs CBC & BMP: 05/18/16 05:59 05/18/16 05:59 Lab Results: I have reviewed the past 24 hour labs Specialty Discharge - Follow Up or Referrals
--- NOTE | 2016-05-19 13:46 | Cardiology Progress Note ---
Assessment and Plan - Time spent with patient Time spent with patient: Less than 30 minutes (1) Decreased cardiac output Status: Acute Assessment and plan: Starting Dobutamine Current Visit: Yes (2) Acute systolic CHF (congestive heart failure) Status: Acute Assessment and plan: Acute CHF, secondary to EF 10%. Current Visit: Yes (3) Anxiety Status: Acute Current Visit: Yes (4) Depression Status: Acute Current Visit: Yes (5) Ventricular tachycardia Status: Acute Assessment and plan: Continue to monitor closely Current Visit: Yes Cardiology - PN: Subj Interval history: 65 year old female, with CHF exacerbation, newly diagnosed cardiomyopathy, likely nonischemic in origin. Psoriatic arthritis, remote history of smoking, suspected drug abuse or incidental (met)amphetamine intake. History of asympytomatic VTA. Heart rate improved overnight. She is still dizzy and lightheaded. Still very SOB with exertion and symptomatic. Dr. Moeller recommending IV Dobutamine at this time. LDL, HbA1c normal. -Lisinopril 2.5mg daily was initiated and should she be discharged today, recommend continuing at discharge however she has not recieved this dose during admission. Recommend holding only when SBP <80mmHg. -Continue gentle diuresis has occurred. Continue Lasix 40mg orally daily. Daily BMP -Unable to tolerate a beta wing at this point, although this would be quite beneficial as she already has a ventricular ectopy. Decreased cardiac output - will start Dobutamine -No evidence of demand ischemia. She will need ischemic workup which may be pursued as an outpatient. -ESR WNL. CRP elevated but not suggestive or acute myocarditis. , -Cardiac rehab consult has been ordered as well as PT eval -She has declined psych admission. -Recommend Lifevest on discharge Exam (Progress Note) - Constitutional Vitals: Period Temp Pulse Resp BP Sys/Bueno Pulse Ox Last 24 Hr 96.3 F-97.8 F 89-106 16-20 87-121/57-77 90-96 Exam: General: Appears well with no apparent distress. Pleasant and cooperative. Appears comfortable. HEENT: PERRL, normocephalic, atraumatic. Mucous membranes moist. No jaundice noted. Conjunctiva moist and clear, sclerae anicteric Neck: No JVD/HJR, no thyromegaly or lymphadenopathy noted. No carotid bruit appreciated Cardiac: Regular rate and rhythm. No murmur rub or gallop. Lungs: Clear to auscultation without accessory muscle use to assist the respiratory pattern. Not using oxygen. Abdomen: Soft, bowel sounds normoactive. Nontender and nondistended. No abdominal bruit or thrill noted. No masses noted. Musculoskeletal: No fluid collection. Decreased range of motion is noted. Extremities: No clubbing, cyanosis noted. No edema noted. Upper extremity pulses 2+. Lower extremity pulses 2+. Capillary refill less than 3 seconds. Skin: No unusual lesions or rashes. No skin breakdown appreciated. Neuro: Awake, alert and oriented 3. Moves all extremities well without hemiparesis or paralysis. No essential tremor is appreciated. Result/EKG - Labs CBC & BMP: 05/18/16 05:59 05/18/16 05:59 Lab Results: I have reviewed the past 24 hour labs Labs: Laboratory Results - last 24 hr 05/19/16 05/19/16 04:24 04:24 ESR Westergren 26 C-Reactive Protein 0.49 H - EKG EKG results: interpreted by me EKG shows: sinus rhythm Specialty Discharge - Follow Up or Referrals
[2016-05-19] MEDS: DOBUTamine 500 MG/250 ML PREMIX IV SCH (14:57)
[2016-05-19] MEDS ORDERED: FUROSEMIDE 20 MG/2 ML VIAL IV ONE (18:00)
[2016-05-19] MEDS: ENOXAPARIN 40 MG/0.4 ML SYRINGE SUBCUT SCH (21:38)
[2016-05-20 08:19] LABS: Apearance,Urine Slightly Hazy (Clear); Bacteria,Urine Occasional /HPF (Few); Bilirubin,Urine Negative (Negative); Blood, Urine Negative (Negative); Glucose,Urine (UA) Negative (Negative); Ketones,Urine Negative (Negative); Mucus,Urine Occasional /LPF (Occasional); Nitrite,Urine Negative (Negative); Protein,Urine Negative; Squamous Epithelial Cell,Urine Occasional /HPF (0-10); Urine Color Yellow (Yellow); Urine Specific Gravity 1.014 (1.001-1.035); Urine Urobilinogen < 2.0 EU/DL (0.2-1.0); WBC,Urine 3 /HPF (0-6)
[2016-05-20] MEDS: PANTOPRAZOLE 40 MG TABLET PO SCH (09:00)
[2016-05-20] MEDS: LISINOPRIL 2.5 MG TABLET PO SCH (09:00)
[2016-05-20] MEDS: ALPRAZolam 0.25 MG TABLET PO SCH (09:00)
[2016-05-20] MEDS: PARoxetine 20 MG TABLET PO SCH (09:00)
[2016-05-20] MEDS ORDERED: FUROSEMIDE 20 MG/2 ML VIAL IV ONE (09:47)
--- NOTE | 2016-05-20 09:53 | Cardiology Progress Note ---
Assessment and Plan (1) Congestive heart failure Status: Acute Assessment and plan: 65 year old female, with CHF exacerbation, newly diagnosed cardiomyopathy, likely nonischemic in origin. Psoriatic arthritis, remote history of smoking, suspected drug abuse or incidental (met)amphetamine intake. The elevated heart rate is likely compensated for the low stroke volume. Already had asymptomatic VTA. Clinically, she is euvolemic and appears to have decreased CO. LDL, HbA1c normal. No history of rheumatologic disease besides psoriatic arthritis so far, which was stable recently. Clinical course so far does not suggest acute myocarditis. -Continue dobutamine at 2. Good response to inotropic support, without significant tachycardia or proarrhythmia so far. I would continue this for today, as this enabled us to start diuretics and low-dose ABHIJEET inhibitor. We won 't be able to initiate any beta-blockade at this point. -No evidence of demand ischemia. She will need ischemic workup, when CHF improves. Can be pursued as an outpatient. -PT -She is quite depressed. Mood improved today -Recommend Lifevest on discharge. She had asymptomatic nonsustained ventricular tachycardia, we are unable to start beta-blockade, high risk for SCD. -If she continues to do well, plan to discontinue inotropic support tomorrow and if she remains stable, potentially could go home or rehab later tomorrow Current Visit: Yes (2) Acute dyspnea Status: Acute Current Visit: Yes (3) History of hypertension Status: Acute Current Visit: Yes (4) Depression Status: Acute Current Visit: Yes (5) Anxiety Status: Acute Current Visit: Yes Cardiology - PN: Subj Interval history: She is feeling better. She was able to sleep better last night, the orthopnea improved. Good urine output after the dobutamine was started and she was able to tolerate Lasix without significant hypotension. Sinus rhythm, ST mildly decreased compared to yesterday, no significant ventricular tachyarrhythmia. Exam (Progress Note) - Constitutional Vitals: Period Temp Pulse Resp BP Sys/Bueno Pulse Ox Last 24 Hr 96.6 F-97.9 F 89-96 16-20 89-103/55-77 91-100 General appearance: normal weight - Head Head exam: Present: normal inspection - Eye Eye exam: Absent: conjunctival injection Pupils: Absent: dilated - ENT ENT exam: Present: normal external ear exam - Neck Neck exam: Present: normal inspection - Respiratory Respiratory exam: Present: clear to auscultation bilaterally - Cardiovascular Cardiovascular exam: Present: regular rate and rhythm, systolic murmur - GI/Abdominal GI/Abdominal exam: Present: normal bowel sounds - Extremities Exam Extremities exam: Present: normal inspection, normal capillary refill, edema (1+ ) - Back Exam Back exam: Present: normal inspection - Neurological Exam Neurological exam: Present: alert, oriented X3 - Psychiatric Psychiatric exam: Present: normal affect, normal mood - Skin Skin exam: Present: normal color, warm. Absent: cyanosis Result/EKG - Labs CBC & BMP: 05/18/16 05:59 05/18/16 05:59 Lab Results: I have reviewed the past 24 hour labs Labs: Laboratory Results - last 24 hr 05/20/16 08:00 Urine Color Yellow Urine Appearance Slightly hazy Urine pH 5.0 Ur Specific [place] 1.014 Urine Protein Negative Urine Glucose (UA) Negative Urine Ketones Negative Urine Blood Negative Urine Nitrate Negative Urine Bilirubin Negative Urine Urobilinogen < 2.0 H Urine Leukocytes Negative Urine WBC 3 Ur Squamous Epith Cells Occasional Urine Bacteria Occasional Urine Mucus Occasional Ur Culture Indicated? Not indicated Specialty Discharge - Follow Up or Referrals Follow up with: Brayan Flores MD [Physician] - (05/25/16 AT 10:00 AT [facility] FOR LABS - ( BMP,MG,CBC ) 05/27/16 AT 2:10 DR. FLORES AT [facility])
--- NOTE | 2016-05-20 11:20 | Hospitalist Progress Note ---
Assessment and Plan - Time spent with patient Time spent with patient: Less than 30 minutes (1) Acute systolic CHF (congestive heart failure) Status: Acute Assessment and plan: on dobutamine infusion, tolerating well. Current Visit: Yes (2) Acute dyspnea Status: Acute Current Visit: Yes (3) Anxiety Status: Acute Current Visit: Yes (4) Depression Status: Acute Current Visit: Yes (5) History of hypertension Status: Acute Current Visit: Yes (6) Ventricular tachycardia Status: Acute Assessment and plan: life vest has been approved. Current Visit: Yes Hospitalist: Subjective Interval history: Ms. Hodge was seen on rounds this morning lying in bed. She states that she is feeling some better after being on the dobutamine. She has just finished working with physical therapy and is tired from that. She is breathing easily on 2L and denies any shortness of breath or chest pain. Per Dr. Flores's notes, she may be able to home or to rehab tomorrow. Exam - Constitutional Vitals: Period Temp Pulse Resp BP Sys/Bueno Pulse Ox Last 24 Hr 96.6 F-97.9 F 89-96 16-20 89-103/55-77 91-100 General appearance: normal weight, no acute distress - Head Head exam: Present: normal inspection, normocephalic - Eye Eye exam: Present: EOMI. Absent: scleral icterus Pupils: Present: BILL, normal accommodation - ENT ENT exam: Present: normal exam, normal oropharynx - Neck Neck exam: Present: normal inspection. Absent: lymphadenopathy - Respiratory Respiratory exam: Present: clear to auscultation bilaterally. Absent: accessory muscle use - Cardiovascular Cardiovascular exam: Present: regular rate and rhythm - GI/Abdominal GI/Abdominal exam: Present: normal bowel sounds, soft. Absent: tenderness - Extremities Exam Extremities exam: Present: normal inspection. Absent: edema - Back Exam Back exam: Present: normal inspection. Absent: muscle spasm - Neurological Exam Neurological exam: Present: alert, oriented X3 - Psychiatric Psychiatric exam: Present: normal affect, normal mood - Skin Skin exam: Present: normal color, warm, dry, intact Results - Labs CBC & BMP: 05/18/16 05:59 05/18/16 05:59 Lab Results: I have reviewed the past 24 hour labs Specialty Discharge - Follow Up or Referrals Follow up with: Brayan Flores MD [Physician] - (05/25/16 AT 10:00 AT [facility] FOR LABS - ( BMP,MG,CBC ) 05/27/16 AT 2:10 DR. FLORES AT [facility])
[2016-05-20] MEDS: DOBUTamine 500 MG/250 ML PREMIX IV SCH (15:22)
[2016-05-20] MEDS: FUROSEMIDE 20 MG/2 ML VIAL IV SCH (16:47)
[2016-05-20] MEDS: ENOXAPARIN 40 MG/0.4 ML SYRINGE SUBCUT SCH (20:59)
[2016-05-21] MEDS: PARoxetine 20 MG TABLET PO SCH (09:19)
[2016-05-21] MEDS: ALPRAZolam 0.25 MG TABLET PO SCH (09:19)
[2016-05-21] MEDS: FUROSEMIDE 20 MG/2 ML VIAL IV SCH (09:19)
[2016-05-21] MEDS: PANTOPRAZOLE 40 MG TABLET PO SCH (09:19)
[2016-05-21] MEDS: LISINOPRIL 2.5 MG TABLET PO SCH (09:19)
--- NOTE | 2016-05-21 12:14 | Discharge Summary ---
Hospital Course - Hospital Course Hospital Course: Mrs Hodge presented with shortness of breath and dyspnea onexertion which had been bothering her for a while. She has chronic anxiety adn grief issues realted to hr 's suicide 2 years ago and her daughter's murder 4 months ago. She has never been to counseling or sought mental health treatment other than meds form her PCP which have helped some though her symptoms worsened during the holidays. She was found to have acute on chronic systolic heart failure with an EF of 10% . She was treated with IV dobutamine and ABHIJEET was started. [facility] was arranged. She will follow up in clinic with Dr Moeller and will need cath in future to eval for ischemic heart disease. She will also go to outpatient counseling adn have home health counseling. She was offered inpatient [place] [facility] stay but did not want to go. Lasix, lisinopril are the new medicines. - Time spent with patient Time with patient DS: Greater than 30 minutes (coordination of care, medicine reconciliation, discharge planning, documentation.) Diagnosis - Discharge Diagnosis (1) Acute anxiety Status: Inactive (2) Congestive heart failure Status: Suspected (3) Acute dyspnea Status: Acute (4) History of hypertension Status: Acute Specialty Discharge - Follow Up or Referrals Follow up with: Brayan Moeller MD [Physician] - (05/25/16 AT 10:00 AT [facility] FOR LABS - ( BMP,MG,CBC ) 05/27/16 AT 2:10 DR. MOELLER AT [facility]) your, PCP [Other] - 1 Week Discharge Plan - Discharge Data Disposition: Home Health Service Condition at Discharge: Stable Activity: wear oxygen at all times - Discharge Medications New Furosemide Tab [Lasix Tab] 40 mg PO DAILY #30 tablet Lisinopril [Prinivil] 2.5 mg PO DAILY #30 tablet Continue Amitriptyline [Elavil] 10 mg PO Q6H #120 tablet PARoxetine [Paxil] 40 mg PO DAILY #30 tablet ALPRAZolam [Xanax] 0.25 mg PO DAILY #7 tablet - Follow Up or Referral Follow Up: Brayan Moeller MD [Physician] - (05/25/16 AT 10:00 AT [facility] FOR LABS - ( BMP,MG,CBC ) 05/27/16 AT 2:10 DR. MOELLER AT [facility]) - Forms/Instructions Instructions: Coronary Artery Disease (GEN) Exam - Constitutional Vitals: Period Temp Pulse Resp BP Sys/Bueno Pulse Ox Last 24 Hr 96.8 F-97.9 F 18-99 18-20 99-113/54-85 87-98 General appearance: no acute distress, under weight - Head Head exam: Present: normocephalic, atraumatic - Eye Eye exam: Present: EOMI. Absent: scleral icterus - Respiratory Respiratory exam: Present: clear to auscultation bilaterally - Cardiovascular Cardiovascular exam: Present: regular rate and rhythm - GI/Abdominal GI/Abdominal exam: Present: normal bowel sounds, soft. Absent: tenderness - Extremities Exam Extremities exam: Absent: edema - Neurological Exam Neurological exam: Present: alert, oriented X3, CN II-XII intact. Absent: motor sensory deficit - Skin Skin exam: Present: warm, dry DS: Provider Date of admission: 05/16/16 21:09 Primary care physician: . No PCP Attending physician on admission: Elizabeth Irizarry MD Consults: 05/16/16 23:57 Consult to Dietitian [CONS] Routine Reason for Dietitian: Dietary Consult 05/17/16 10:18 Consult to Case Mgmt/Social Srvs [CONS] Routine Reason for Case Mgmt/Social Srvs: Psychiatric Management 05/18/16 07:50 Consult to Physician [CONS] Routine Comment: Consulting Provider: Cardiology - [facility] 05/18/16 10:40 Consult to Pastoral Services [CONS] Routine Comment: Pastoral Screen: Declines Visit Request [employer] Visit Grief Over Loss Crying,Anxiety,Nervous,M 05/18/16 11:50 Consult to Physical Therapy [CONS] Routine Reason for Physical Therapy: Evaluate and Treat Weakness 05/18/16 11:52 Consult to Cardiac Rehabilitation [CONS] Routine Reason for Cardiac Rehabilitation: Risk Factor Modification Appt Out Pt Cardiac Rehab Consult Comment: EF 10% 05/18/16 11:53 Consult to Case Mgmt/Social Srvs [CONS] Routine Reason for Case Mgmt/Social Srvs: Equipment Consult Comment: Please set patient up with [facility] at discharge - EF 10% 05/21/16 11:15 Consult to Case Mgmt/Social Srvs [CONS] Routine Reason for Case Mgmt/Social Srvs: Home Health Consult Comment: nursing,psych nurse,PT and OT eval and treat. 05/21/16 11:16 Consult to Case Mgmt/Social Srvs [CONS] Routine Reason for Case Mgmt/Social Srvs: Equipment Consult Comment: O2 at 2lpm for home use Discharging clinician: Elizabeth Irizarry MD
[2016-05-21 15:45] VITALS: BP 92/56
== END 2016-05-21 15:56 | disposition home health service (06) | DRG 292 ==
LOC: N.ED 17:14 → N.EDINP 21:08 → N.TELES 21:58
PROVIDERS: ADMIT Internal Medicine; ATTEND Internal Medicine